=== PATIENT | female | born 1980 | race Caucasian/White ===

== ENCOUNTER 2023-06-11 15:32 | Emergency (ER) | payer OTHER, SELFPAY ==
[2023-06-11 15:50] VITALS: BP 132/86; PULSE 91; RESP 19; TEMP 36.6; O2SAT 99; BMI 32.8
--- NOTE | 2023-06-11 16:35 | ED_ITS ---
Discharge Plan Disposition Patient Disposition: Home, Self-Care Condition: Good Prescriptions Prescriptions: New azithromycin [Zithromax Z-Braydon] 250 mg tablet See Rx Instructions .ROUTE .COMPLEX 5 Days Qty: 6 0RF Rx Instructions: For 250 mg dose pack: take 500 mg today (day 1), then 250 mg for 4 days (days 2-5) methylprednisolone [Medrol (Braydon)] 4 mg tablets,dose pack See Rx Instructions .Route .COMPLEX 6 Days Qty: 21 0RF Rx Instructions: taper pack; guaifenesin [Mucinex] 600 mg tablet extended release 12hr 1,200 mg PO BID PRN (Reason: cough) Qty: 20 0RF Referrals Follow up/Referrals: Provider,Referral, MD [Primary Care Provider] - See instructions Activity Restrictions/Add. Instructions Additional Instructions/Restrictions: * Start antibiotic today. Be sure to complete entire prescription even if feeling better * Monitor temp. Tylenol every 4 hours as needed and / or ibuprofen every 6 hours as needed ( As long as your primary care physician has told you that it ok to take both. For fever/aches/pains ER if no less than 101 despite Tylenol or Motrin * Humidifier/vaporizer or hot steamy shower * Mucinex for your cough and cough suppressant only at night. Be sure to drink lots of water. *Start steroid today. Helps with inflammation therefore, cough and wheezing. Follow directions on the package. Reviewed side effects. Patient reports taking them before. Follow up IMMEDIATELY for new or worsening of symptoms OR no noticeable improvement over the next 48-72 hours. 911 immediately for any life threatening symptoms such as chest pain or difficulty breathing Clinical Impressions Clinical Impression: Bronchitis Sinusitis Qualifiers: Sinusitis location: unspecified location Chronicity: unspecified Qualified Code(s): J32.9 - Chronic sinusitis, unspecified Instructions Patient Instructions: DI for Sinusitis, Sinusitis, Acute Bronchitis Discharge ED Provider: Yarely Mike [facility] General Stated complaint: anatoly, tb test Mode of Arrival: Ambulatory Source of Information: Patient Limitations: No Limitations Time Seen by Provider: 06/11/23 16:35 Description of Symptoms (Recalled from Triage Doc. by RN): PATIENT C/O COUGH AND CHEST CONGESTION X 3 WEEKS HEENT Symptoms (Recalled from RN notes): No Resp Symptoms (Recalled from RN notes): Yes Skin Symptoms (Recalled from RN notes): No MS Symptoms (Recalled from RN notes): No Functional Status (Recalled from RN notes): WNL History of Present Illness Provider Complaint: Patient states that she started a couple weeks ago with sinus congestion and pressure and now feels like it has moved into her chest States that at times she is coughing up some mucous and having a burning feeling at times with cough States that today she was still having symptoms so she came in to get checked Related Data Previous Rx's Medication Instructions Recorded azithromycin 250 mg tablet See Rx Instructions PO .COMPLEX 5 06/11/23 (Zithromax Z-Braydon) days #6 tabs guaifenesin 600 mg tablet, 1,200 mg PO BID PRN cough #20 tabs 06/11/23 extended release 12 hr (Mucinex) methylprednisolone 4 mg tablets in See Rx Instructions .Route 06/11/23 a dose pack (Medrol (Braydon)) .COMPLEX 6 days #21 tabs Allergies Allergy/AdvReac Type Severity Reaction Status Date / Time No Known Allergies Allergy Verified 06/11/23 16:00 Worker's Comp Is this a Worker's Comp case?: No PFSH FOR[facility]LY [facility], [facility] Disclaimer: The information contained in this section may have been updated after the jessica ent was seen, as this information can be updated by other users. Medical History (Updated 06/11/23 @ 16:46 by Yarely Mike APRN) No significant past medical history Social History Smoking Status: Unknown if ever smoked alcohol intake: never current occupational status: employed Travel in the last 8 weeks: None ROS Obtained: Yes All systems reviewed & no additional complaints except as documented and Yes Systems reviewed as appropriate & no additional complaints except as documented Constitutional Constitutional: Reports system reviewed and no additional complaints, except as documented and Reports as per HPI ENT Ears, Nose, Mouth, and Throat: Reports system reviewed and no additional complaints, except as documented, Reports as per HPI, Reports nasal congestion and Reports sinus pressure Cardiovascular Cardiovascular: Reports system reviewed and no additional complaints, except as documented and Reports as per HPI Respiratory Respiratory: Reports system reviewed and no additional complaints, except as documented, Reports as per HPI, Denies shortness of breath, Reports chest congestion and Reports cough Gastrointestinal Gastrointestingal: Reports system reviewed and no additional complaints, except as documented and as per HPI Physical Exam General General appearance: alert and in no apparent distress ENT ENT exam: Present mucous membranes moist Expanded ENT Exam Nose exam: Present sinus tenderness Throat exam: Present other (Pharngeal erythema noted with PND) Respiratory Respiratory exam: Present normal lung sounds bilaterally; Absent respiratory distress or wheezes Cardiovascular Cardiovascular exam: Present regular rate, normal rhythm and normal heart sounds Abdominal Exam Abdominal exam: Present soft and normal bowel sounds; Absent distention or tenderness Neurological Exam Neurological exam: Present alert, oriented X3 and normal gait Medical Decision Making Nikolai Inquiry Pt receiving controlled substance: No Nikolai was queried for this patient: No Vital Signs: 06/11/23 15:50 Temperature 97.9 F Temperature Source Oral Pulse Rate [Left Brachial] 91 H Respiratory Rate 19 Blood Pressure [Left Arm] 132/86 Blood Pressure Mean [Left Arm] 101 Blood Pressure Source [Left Arm] Automatic Cuff Blood Pressure Position [Left Arm] Sitting 02 Sat by Pulse Oximetry 99 Oxygen Delivery Method Room Air
[2023-06-11 16:50] VITALS: BP 132/86; PULSE 91; RESP 19; TEMP 36.6; O2SAT 99
== END 2023-06-11 16:53 | disposition home or self-care (01) ==
PROVIDERS: Emergency Provider Nurse Practitioner
DX: J20.9 Acute bronchitis, unspecified (principal); J01.90 Acute sinusitis, unspecified; R09.89 Other specified symptoms and signs involving the circulatory and respiratory systems; R05.8 Other specified cough
CPT/HCPCS: 99204; 99212; G0463

== ENCOUNTER 2023-08-04 02:23 | Emergency (ER) | payer OTHER, SELFPAY ==
--- NOTE | 2023-08-04 02:26 | HMH.EDGENADL ---
Discharge Plan Disposition Patient Disposition: Home, Self-Care Chief Complaint: Upper Respiratory Infection Prescriptions Prescriptions: No Action azithromycin [Zithromax Z-Braydon] 250 mg tablet See Rx Instructions .ROUTE .COMPLEX 5 Days Qty: 6 0RF Rx Instructions: For 250 mg dose pack: take 500 mg today (day 1), then 250 mg for 4 days (days 2-5) methylprednisolone [Medrol (Braydon)] 4 mg tablets,dose pack See Rx Instructions .Route .COMPLEX 6 Days Qty: 21 0RF Rx Instructions: taper pack; guaifenesin [Mucinex] 600 mg tablet extended release 12hr 1,200 mg PO BID PRN (Reason: cough) Qty: 20 0RF Referrals Follow up/Referrals: Provider,Referral, [Primary Care Provider] - See instructions Activity Restrictions/Add. Instructions Additional Instructions/Restrictions: Please follow-up with your primary care provider. Please return to the emergency department if you develop any new or worsening symptoms or become concerned for your health. Clinical Impressions Clinical Impression: Acute streptococcal pharyngitis Discharge ED Provider: Uri Loya General Adult HPI General Stated complaint: sore throat Time Seen by Provider: 08/04/23 02:26 History of Present Illness HPI narrative: 43-year-old female with reported history of recurrent severe strep throat presents with concern for strep throat. She reports that symptom onset was earlier today. She reports that she has had to be admitted for this in the past. She reports throat pain. Related Data Previous Rx's Medication Instructions Recorded azithromycin 250 mg tablet See Rx Instructions PO .COMPLEX 5 06/11/23 (Zithromax Z-Braydon) days #6 tabs guaifenesin 600 mg tablet, 1,200 mg PO BID PRN cough #20 tabs 06/11/23 extended release 12 hr (Mucinex) methylprednisolone 4 mg tablets in See Rx Instructions .Route 06/11/23 a dose pack (Medrol (Braydon)) .COMPLEX 6 days #21 tabs Allergies Allergy/AdvReac Type Severity Reaction Status Date / Time No Known Allergies Allergy Verified 06/11/23 16:00 [facility] Disclaimer: The information contained in this section may have been updated after the patient was seen, as this information can be updated by other users. Medical History (Updated 08/04/23 @ 02:52 by Uri Loya MD) No significant past medical history Social History (Updated 06/11/23 @ 16:46 by Yarely Mike APRN) Smoking Status: Unknown if ever smoked alcohol intake: never current occupational status: employed Travel in the last 8 weeks: None ROS Obtained: Yes All systems reviewed & no additional complaints except as documented Physical Exam General General appearance: alert and in no apparent distress Head Head exam: atraumatic and normocephalic Eye Eye exam: Present normal appearance, PERRL and EOMI ENT ENT exam: Present normal external ear exam and other (Tonsillar erythema, swelling, exudate, 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) Neck Neck exam: Present normal inspection and full ROM Chest Chest inspection: Present normal inspection and symmetric chest wall rise; Absent tenderness Respiratory Respiratory exam: Present normal lung sounds bilaterally; Absent respiratory distress Cardiovascular Cardiovascular exam: Present regular rate and normal rhythm Abdominal Exam Abdominal exam: Present soft; Absent distention, tenderness or guarding Extremities Exam Extremities exam: Present normal inspection; Absent edema or joint swelling Back Exam Back exam: Present normal inspection; Absent tenderness Neurological Exam Neurological exam: Present alert and oriented X3; Absent motor sensory deficit Psychiatric Psychiatric exam: Present normal affect and normal mood Skin Skin exam: Present warm, dry and normal color Lymphatic Lymphatic Findings: no adenopathy Medical Decision Making Medical Records Medical records reviewed: Yes I reviewed the patient's medical records. Nikolai Inquiry Pt receiving controlled substance: No Nikolai was queried for this patient: No Lab Data Lab results reviewed: Yes I reviewed the patient's lab results. Orders (Tests/Meds): ORDERS Category Date Time Status Strep Scrn Group A (Rapid) Stat Lab 08/04/23 02:31 Ordered Medical Decision Narrative: 43-year-old female with reported history of recurrent strep throat presents with throat pain. History obtained from patient. Differential diagnosis includes but limited to strep pharyngitis, viral pharyngitis, peritonsillar abscess, retropharyngeal abscess. Exam with tonsillar erythema and exudate. Strep swab obtained and positive. Patient reports that she has had more success with the IM injection versus the oral amoxicillin for treatment of strep throat in the past. She was given 1,200,000 units of intramuscular penicillin G and discharged in stable condition. Return precautions given. Procedures Risk/Benefits of Procedure(s) Were Explained: Yes Critical Care Critical Care Time Critical Care Time: No
[2023-08-04 02:36] VITALS: BP 122/94; PULSE 105; RESP 18; TEMP 37.3; O2SAT 98; BMI 29.2
[2023-08-04 02:48] LABS: Strep Scrn Group A (Rapid) Positive (Negative)
[2023-08-04] MEDS: PENICILLIN G BENZATHINE 1,200,000 UNITS/2ML SYRINGE 1200000 UNIT IM (02:54)
[2023-08-04 03:04] VITALS: BP 122/94; PULSE 98; RESP 19; TEMP 37.2; O2SAT 99
== END 2023-08-04 02:57 | disposition home or self-care (01) ==
PROVIDERS: Emergency Provider Emergency Medicine
DX: J02.0 Streptococcal pharyngitis (principal)
CPT/HCPCS: 87430; 96372; 99283; J0561

== ENCOUNTER 2023-08-05 16:05 | Emergency (ER) | payer OTHER, SELFPAY ==
[2023-08-05 16:05] VITALS: BP 122/91; PULSE 88; RESP 15; TEMP 36.8; O2SAT 98; BMI 29.2
[2023-08-05 16:11] VITALS: BP 122/91; PULSE 91; O2SAT 98
--- NOTE | 2023-08-05 16:17 | CT_ITS ---
PROCEDURE INFORMATION: Exam: CT Neck With Contrast Exam date and time: 08/05/2023 5:11 PM Age: 43 years old Clinical indication: Other: P; Additional info: Pharyngitis vs abscess TECHNIQUE: Imaging protocol: Computed tomography of the neck with contrast. Radiation optimization: All CT scans at this facility use at least one of these dose optimization techniques: automated exposure control; mA and/or kV adjustment per patient size (includes targeted exams where dose is matched to clinical indication); or iterative reconstruction. Contrast material: ISOVUE; Contrast volume: 75 ml; Contrast route: IV; COMPARISON: No relevant prior studies available. FINDINGS: Limitations: Limited by artifact arising from metallic dental hardware/dental amalgam. Patient motion. Paranasal sinuses: Mild paranasal sinus disease. Pharynx: There is striated pattern of enhancement involving the bilateral palatine tonsils with tonsillar enlargement. Larynx: Unremarkable. Epiglottis is normal. Prevertebral and retropharyngeal spaces: Unremarkable. Salivary glands: Normal. Glands are normal in size. Thyroid: Normal. No enlarged or calcified nodules. Lymph nodes: There are nonenlarged bilateral cervical lymph nodes. Trachea: Visualized trachea is unremarkable. Lungs: Unremarkable as visualized. Bones/joints: Unremarkable. No acute fracture. Soft tissues: Unremarkable. No significant soft tissue swelling. Other findings: No fluid collection. IMPRESSION: 1. Findings as above compatible with tonsillitis. 2. No drainable fluid collection.
--- NOTE | 2023-08-05 16:21 | ED_ITS ---
Discharge Plan Disposition Patient Disposition: Home, Self-Care Condition: Fair Prescriptions Prescriptions: New amoxicillin-pot clavulanate 875-125 mg tablet 1 tab PO BID Qty: 20 0RF No Action azithromycin [Zithromax Z-Braydon] 250 mg tablet See Rx Instructions .ROUTE .COMPLEX 5 Days Qty: 6 0RF Rx Instructions: For 250 mg dose pack: take 500 mg today (day 1), then 250 mg for 4 days (days 2-5) methylprednisolone [Medrol (Braydon)] 4 mg tablets,dose pack See Rx Instructions .Route .COMPLEX 6 Days Qty: 21 0RF Rx Instructions: taper pack; guaifenesin [Mucinex] 600 mg tablet extended release 12hr 1,200 mg PO BID PRN (Reason: cough) Qty: 20 0RF Referrals Follow up/Referrals: Favio Silva MD [Physician] - See instructions Provider,MD Maxi [Primary Care Provider] - See instructions Clinical Impressions Clinical Impression: Acute bacterial pharyngitis Instructions Patient Instructions: DI for Pharyngitis/Tonsillopharyngitis -- Adult Discharge ED Provider: Courtney Mccullough General Adult HPI General Chief complaint: PAIN Stated complaint: strep + Time Seen by Provider: 08/05/23 16:11 Mode of Arrival: Ambulatory Source of Information: Patient Limitations: No Limitations Description of Symptoms (Recalled from ER Triage Doc. by RN): pt presents to ED with complaints of worsening sore throat. pt was diagnosed with strep in ED on 08/04 and was given penicillian shot. pt reports symptoms worsening since then History of Present Illness HPI narrative: 43-year-old female with previous medical history of prior episodes of painful strep pharyngitis presents with 3 days of sore throat. 3 days ago patient began to have sore throat pain, redness, and tonsillar exudates. She presented to this emergency department approximately 36 hours ago requesting antibiotics for this pharyngitis and was given IM penicillin. She has had no improvement in her pharyngitis and has continued to have severe pain so has returned to the emergency department. She states she has had to be admitted for IV antibiotics for this in the past. She has not taken steroids for this. She has been taking Tylenol and ibuprofen at home. She is tolerating food and fluids by mouth. Related Data Previous Rx's Medication Instructions Recorded azithromycin 250 mg tablet See Rx Instructions PO .COMPLEX 5 06/11/23 (Zithromax Z-Braydon) days #6 tabs guaifenesin 600 mg tablet, 1,200 mg PO BID PRN cough #20 tabs 06/11/23 extended release 12 hr (Mucinex) methylprednisolone 4 mg tablets in See Rx Instructions .Route 06/11/23 a dose pack (Medrol (Braydon)) .COMPLEX 6 days #21 tabs amoxicillin 875 mg-potassium 1 tab PO BID #20 tabs 08/05/23 clavulanate 125 mg tablet Allergies Allergy/AdvReac Type Severity Reaction Status Date / Time No Known Allergies Allergy Verified 06/11/23 16:00 [facility] Disclaimer: The information contained in this section may have been updated after the patient was seen, as this information can be updated by other users. Medical History No significant past medical history Social History Smoking Status: Never smoker alcohol intake: never current occupational status: employed Travel in the last 8 weeks: None ROS Obtained: Yes All systems reviewed & no additional complaints except as documented Physical Exam General General appearance: alert Comment: Tearful but no acute respiratory distress. No stridor. Head Head exam: atraumatic, normocephalic and normal inspection Eye Eye exam: Present normal appearance, PERRL and EOMI ENT ENT exam: Present mucous membranes moist, TM's normal bilaterally and normal external ear exam Expanded ENT Exam Throat exam: Present tonsillar erythema and tonsillar exudate; Absent muffled voice Comment: Tonsillar swelling left greater than right Neck Neck exam: Present normal inspection, full ROM and trachea midline; Absent meningismus or lymphadenopathy Chest Chest inspection: Present normal inspection and symmetric chest wall rise; Absent tenderness Respiratory Respiratory exam: Present normal lung sounds bilaterally; Absent respiratory distress Cardiovascular Cardiovascular exam: Present regular rate and normal rhythm; Absent JVD Abdominal Exam Abdominal exam: Present soft and normal bowel sounds; Absent distention, tenderness or guarding Extremities Exam Extremities exam: Present normal inspection, full ROM and normal capillary refill; Absent calf tenderness Back Exam Back exam: Present normal inspection; Absent tenderness Neurological Exam Neurological exam: Present alert and oriented X3 Psychiatric Psychiatric exam: Present normal affect and normal mood Skin Skin exam: Present warm, dry, intact and normal color Lymphatic Lymphatic Findings: no adenopathy Medical Decision Making Nikolai Inquiry Pt receiving controlled substance: No Nikolai was queried for this patient: No Vital Signs: 08/05/23 16:05 08/05/23 16:11 08/05/23 16:30 Temperature 98.3 F Temperature Source Oral Pulse Rate 91 H 86 Pulse Rate [Left Radial] 88 Respiratory Rate 15 20 Blood Pressure 122/91 H 128/92 H Blood Pressure [Right Arm] 122/91 H Blood Pressure Mean 101 101 Blood Pressure Mean [Right Arm] 101 02 Sat by Pulse Oximetry 98 98 99 Oxygen Delivery Method Room Air Room Air Lab Data Lab Results 08/05/23 16:30: WBC 11.3 H, RBC 4.05 L, Hgb 12.2, Hct 36.1 L, MCV 89.2, MCH 30.1, MCHC 33.7, RDW 13.2, Plt Count 317, MPV 7.2 L, Neut % (Auto) 77.1, Lymph % (Auto) 16.5, [place] % (Auto) 4.3, Eos % (Auto) 1.6, Baso % (Auto) 0.4, Neut # (Auto) 8.7 H, Lymph # (Auto) 1.9, [place] # (Auto) 0.5, Eos # (Auto) 0.2, Baso # (Auto) 0.1, Sodium 138, Potassium 3.3 L, Chloride 106, Carbon Dioxide 28, Anion Gap 7.3, BUN 8, Creatinine 0.70, Estimated Creat Clear 114, Estimated GFR 92, Est GFR ( Amer) 112, Glucose 96, Calcium 9.1, Serum HCG, Qual Negative 08/05/23 16:30 08/05/23 16:30 Orders (Tests/Meds): ED MEDICATIONS Generic Name Dose Route Start Last Admin Trade Name Freq PRN Reason Stop Dose Admin Sodium Chloride 10 ml 08/05/23 16:35 Sodium Chloride 0.9% 10ml Flush Syringe IV 09/04/23 16:34 NEEDED PRN Maintain IV Site Discontinued Medications Generic Name Dose Route Start Last Admin Trade Name Freq PRN Reason Stop Dose Admin Dexamethasone 10 mg 08/05/23 16:17 08/05/23 16:33 Dexamethasone 1mg/1ml Intensol 10ml Udc (Er) PO 08/05/23 16:18 10 mg ONCE ONE Administration Ampicillin Sodium/Sulbactam 100 mls @ 200 mls/hr 08/05/23 16:28 08/05/23 16:52 Sodium 3 gm/ Sodium Chloride IV 08/05/23 16:29 200 mls/hr ONCE ONE Administration Iopamidol 75 ml 08/05/23 17:13 08/05/23 17:14 Iopamidol-370 (76%);100ml Bottle IV 08/05/23 17:14 75 ml ONCE ONE Administration Ketorolac Tromethamine 15 mg 08/05/23 16:17 08/05/23 16:34 Ketorolac 30mg/Ml Vial IV 08/05/23 16:18 15 mg ONCE ONE Administration Sodium Chloride 10 ml 08/05/23 17:13 08/05/23 17:14 Sodium Chloride 0.9% 10ml Syr (Rad Only) IV 08/05/23 17:14 10 ml ONCE ONE Administration Tetracycl/Hydrocort/Nystatin/Diphen 15 ml 08/05/23 16:20 08/05/23 16:34 Magic Mouthwash 300ml Bottle PO 08/05/23 16:21 15 ml ONCE ONE Administration ORDERS Category Date Time Status CT soft tissue neck w con Stat Cat Scan 08/05/23 16:17 Completed BMP [Basic Metabolic Panel] Stat Lab 08/05/23 16:30 Completed CBC [Complete Blood Count Auto Diff] Stat Lab 08/05/23 16:30 Completed Serum [HCG Qualitative, Serum] Stat Lab 08/05/23 16:30 Completed Medical Decision Narrative: Consider multiple causes of patient's pharyngeal erythema and tonsillar exudates and swelling that have been refractory to IM penicillin, including that patient may have a peritonsillar abscess, retropharyngeal abscess, resistant bacterial pharyngitis, among others. For this reason administered Toradol, dexamethasone, Unasyn, and obtained labs and CT soft tissue neck given she may have an abscess causing her refractory infection. CT scan I independently reviewed and interpreted showed no abscess in the peritonsillar or retropharyngeal region. No severe complications aside from her bacterial pharyngitis. Laboratory evaluation is consistent with bacterial pharyngitis with no significant complications. I explained this to patient and she did have significant improvement in her pain with medications given. Discussed outpatient Augmentin and close follow-up with ENT and patient is comfortable with this plan at this time. Appropriate for discharge with return precautions. Critical Care Critical Care Time Critical Care Time: No
[2023-08-05 16:30] VITALS: BP 128/92; PULSE 86; RESP 20; O2SAT 99
[2023-08-05] MEDS: DEXAMETHASONE 1MG/1ML INTENSOL 10ML UDC (ER) 10 MG PO (16:33)
[2023-08-05] MEDS: KETOROLAC 30MG/ML VIAL 15 MG IV (16:34)
[2023-08-05] MEDS: MAGIC MOUTHWASH 300ML BOTTLE 15 ML PO (16:34)
[2023-08-05 16:48] LABS: Basophils # 0.1 K/mm3 (0-0.2); Basophils % 0.4 % (0.1-2.0); Chloride 106 mmol/L (98-107); Eosinophils # 0.2 K/mm3 (0.0-0.4); Eosinophils % 1.6 % (0.1-12.0); Hematocrit 36.1 % (37.0-47.0); Hemoglobin 12.2 g/dL (12.2-16.2); Lymphocytes # 1.9 K/mm3 (0.7-4.5); Lymphocytes % 16.5 % (10-50); Mean Corpuscular HGB Conc 33.7 g/dL (31.8-35.4); Mean Corpuscular Hemoglobin 30.1 pg (27.0-31.2); Mean Corpuscular Volume 89.2 fl (81-99); Mean Platelet Volume 7.2 fl (7.4-10.4); Monocytes # 0.5 K/mm3 (0.1-1.0); Monocytes % 4.3 % (1.7-9.3); Neutrophils # 8.7 K/mm3 (1.8-7.8); Neutrophils % 77.1 % (37.0-80.0); Platelet Count 317 K/mm3 (142-424); Potassium 3.3 mmoL/L (3.5-5.1); Red Blood Count 4.05 M/mm3 (4.20-5.40); Red Cell Distribution Width 13.2 % (11.5-17.5); Sodium 138 mmol/L (136-145); White Blood Count 11.3 K/mm3 (4.8-10.8)
[2023-08-05 16:51] LABS: Anion Gap 7.3 mEq/L (5-15); Blood Urea Nitrogen 8 mg/dl (7-17); Carbon Dioxide 28 mmol/L (22.0-30.0); Creatinine Clearance Estimated 114 mL/min (50-200); Estimated Glomerular Filt Rate 92 ml/min (>60); GFR (African American) 112 ML/MIN (>60); Glucose 96 mg/dl (74-100)
[2023-08-05 16:52] LABS: Calcium 9.1 mg/dl (8.4-10.2)
[2023-08-05] MEDS: AMPICILLIN SODIUM/SULBACTAM 3 GM in 0.9 % SODIUM CHLORIDE 100 ML IV (16:52)
[2023-08-05 17:00] VITALS: BP 110/73; PULSE 86; RESP 20; O2SAT 97
[2023-08-05 17:02] LABS: HCG Qualitative, Serum Negative (Negative)
[2023-08-05] MEDS: IOPAMIDOL-370 (76%);100ML BOTTLE 75 ML IV (17:14)
[2023-08-05] MEDS: SODIUM CHLORIDE 0.9% 10ML SYR (RAD ONLY) 10 ML IV (17:14)
--- NOTE | 2023-08-05 18:06 | PC.NURSE ---
Rounded on Pt to see if they had any needs. Advised them we had an Emergency at the time and made sure they didnt need anything.
[2023-08-05 18:38] VITALS: BP 120/94; PULSE 86; RESP 15; TEMP 36.7
== END 2023-08-05 18:39 | disposition home or self-care (01) ==
PROVIDERS: Emergency Provider Emergency Medicine
DX: J02.0 Streptococcal pharyngitis (principal)
CPT/HCPCS: 70491; 80048; 84703; 85025; 96374; 96375; 99285; Q9967

== ENCOUNTER 2023-08-23 09:46 | Emergency (ER) | payer OTHER, SELFPAY ==
[2023-08-23 09:55] VITALS: BP 114/72; PULSE 84; RESP 18; TEMP 36.8; O2SAT 96; BMI 43.6
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
[2023-08-23] MEDS: TET/DIPHTH/PERT-ADULT 0.5ML SYRINGE 0.5 ML IM (10:45)
[2023-08-23] MEDS: TETRACAINE 0.5% OPTH SOL 15ML OP (10:58)
[2023-08-23] MEDS: ERYTHROMYCIN BASE 3.5 GM OINT...G. 1 GM OP (10:58)
[2023-08-23 11:00] VITALS: BP 114/72; PULSE 84; RESP 18; TEMP 36.8; O2SAT 96
== END 2023-08-23 11:00 | disposition home or self-care (01) ==
PROVIDERS: Emergency Provider Nurse Practitioner Family
DX: S05.01XA Injury of conjunctiva and corneal abrasion without foreign body, right eye, initial encounter (principal); Z23 Encounter for immunization; W45.8XXA Other foreign body or object entering through skin, initial encounter
CPT/HCPCS: 90471; 90715; 99212; 99214; G0463

== ENCOUNTER 2023-10-28 15:31 | Outpatient (CLI) | payer OTHER, SELFPAY ==
[2023-10-28 15:37] LABS: MANUAL DIFFERENTIAL MANUAL DIFFERENTIAL (MANUAL DIFF)
--- NOTE | 2023-10-28 15:44 | ECG_ITS ---
APPROVED REPORT Exam: Resting ECG HR:93 bpm ECG Measurements Heart Rate 93 AXES UT 162 P 50 QRSd 80 QRS 14 QT 355 T 50 QTc 405 Conclusion SINUS RHYTHM ABNORMAL ECG UNCONFIRMED REPORT Electronically signed by : Augustine Solis MD 10/30/2023 12:25:09
[2023-10-28 15:50] LABS: Basophils # 0.1 K/mm3 (0-0.2); Basophils % 0.9 % (0.1-2.0); Eosinophils # 0.3 K/mm3 (0.0-0.4); Eosinophils % 2.9 % (0.1-12.0); Hematocrit 39.1 % (37.0-47.0); Hemoglobin 12.9 g/dL (12.2-16.2); Lymphocytes # 2.2 K/mm3 (0.7-4.5); Lymphocytes % 25.2 % (10-50); Mean Corpuscular HGB Conc 32.9 g/dL (31.8-35.4); Mean Corpuscular Hemoglobin 29.3 pg (27.0-31.2); Mean Corpuscular Volume 88.9 fl (81-99); Mean Platelet Volume 7.4 fl (7.4-10.4); Monocytes # 0.4 K/mm3 (0.1-1.0); Monocytes % 4.7 % (1.7-9.3); Neutrophils # 5.8 K/mm3 (1.8-7.8); Neutrophils % 66.4 % (37.0-80.0); Platelet Count 344 K/mm3 (142-424); Red Cell Distribution Width 13.5 % (11.5-17.5); White Blood Count 8.8 K/mm3 (4.8-10.8)
[2023-10-28 16:00] LABS: Urine Pregnancy, HCG Qual. Negative (Negative)
[2023-10-28 16:26] LABS: Eosinophils % 1 % (0-3); Lymphocytes % 23 % (10-50); Monocytes % 4 % (2-9); Neutrophils % 72 % (42-76); Platelet Estimate Normal; RBC Morphology Normal; Total Cells Counted 100
[2023-10-28 16:27] LABS: Alanine Aminotransferase 24 U/L (12-78); Albumin Level 4.5 g/dl (3.5-5.0); Albumin/Globulin Ratio 1.4 (1.1-1.8); Alkaline Phosphatase 88 U/L (38-126); Anion Gap 15.6 mEq/L (5-15); Aspartate Amino Transferase 26 U/L (14-36); Bilirubin,Total 0.4 mg/dl (0.2-1.3); Blood Urea Nitrogen 8 mg/dl (7-17); Calcium 9.5 mg/dl (8.4-10.2); Carbon Dioxide 27 mmol/L (22.0-30.0); Chloride 102 mmol/L (98-107); Estimated Glomerular Filt Rate 92 ml/min (>60); GFR (African American) 112 ML/MIN (>60); Globulin 3.2 g/dL (1.3-3.2); Glucose 81 mg/dl (74-100); Potassium 3.6 mmoL/L (3.5-5.1); Sodium 141 mmol/L (136-145); Total Protein,Serum 7.7 g/dl (6.3-8.2)
== END 2023-10-28 23:59 | disposition home or self-care (01) ==
LOC: LAB 15:32
PROVIDERS: Visit Provider Nurse Practitioner
DX: Z01.818 Encounter for other preprocedural examination (principal); J02.0 Streptococcal pharyngitis
CPT/HCPCS: 36415; 80053; 81025; 85007; 85014; 85018; 85048; 85049; 93005

== ENCOUNTER 2023-11-04 08:43 | Day surgery (SDC) | payer OTHER, SELFPAY ==
[2023-11-02 12:44] VITALS: BMI 31.2
[2023-11-04] VITALS (12 sets, daily range): BP systolic 114–132; BP diastolic 66–87; PULSE 70–106; RESP 14–24; TEMP 35.9–36.4; O2SAT 96–100
[2023-11-04] MEDS: LACTATED RINGERS 1000ML 1,000 ML 25 ML IV (09:49)
[2023-11-04] MEDS: BUPIVACAINE 0.5% W/EPI 1:200,000 30ML VIAL 30 ML IJ (11:22)
--- NOTE | 2023-11-04 11:42 | EXP.OP.NOTE ---
Date of procedure: 11/04/23 Pre-op Diagnosis:: Chronic tonsillitis Post-op Diagnosis:: Chronic tonsillitis Procedure performed:: Tonsillectomy Surgeon:: Chriss Land MD MILIEU TECHNICIAN:: Jelena Ferris Anesthesia: GETA Estimated blood loss (mL): 20 Operative findings:: 3+ enlarged inflamed tonsils bilaterally Operative note:: The patient was brought to the operating room and after adequate general anesthesia the mouth was draped in the usual sterile fashion and a McIvor mouthgag placed. Tonsillectomy was then performed in the plane defined by the tonsillar capsule or and superior constrictor muscle and this was done with electrocautery to simultaneously dissected and cauterized. This was done bilaterally. The tonsillar fossa's were then infiltrated with half percent Marcaine with epinephrine and the procedure concluded. All counts correct and blood loss was 20 mL and patient was sent to recovery in stable condition Condition: stable Disposition: PACU Complications:: No complication
--- NOTE | 2023-11-04 11:58 | P.PNANES_ITS ---
[facility] Anesthesia Record Part I Anesthesia Record I Intake, IV Amount: 600 Hydration: Adequate Estimated blood loss (mL): 10 Urine output (mL): 0 Blood Products used (#): none Blood Pressure: 124/76 SaO2: 98 Pulse Rate: 106 Airway Patency: Patent Respiratory Rate: 18 Temperature: 96.6 F Patient is:: Awake (Talking) and Stable Stable to PACU at:: 11:58
[2023-11-04] MEDS: MORPHINE 2MG/ML SYRINGE 2 MG IV ×2 (12:06→12:23)
[2023-11-04] MEDS: ONDANSETRON 4MG/2ML VIAL 4 MG IV (12:06)
--- NOTE | 2023-11-04 12:15 | EXP.ANES.CKL ---
[facility] Disclaimer: The information contained in this section may have been updated after the patient was seen, as this information can be updated by other users. Medical History History of enlarged tonsils Surgical History Status post percutaneous patent foramen ovale closure Family History Father Hypertension Diabetes Social History Smoking Status: Never smoker alcohol intake: never substance use type: denies use current occupational status: employed Travel in the last 8 weeks: None [facility] Anesthesia Checklist Patient Identification Patient Identification: Arm Band, Family and Verbal (Name & ) Structural Data Admitted From: Home Planned Operative Procedure/s: Tonsillectomy Consent for Planned Operative Procedure(s) Verified: Yes Verified Documents: Surgical Consent and History and Physical NPO Status Verified Time NPO: 22:30 Chart Verification Results Verified: CBC, BMP, ECG and HCG Additional verifications Patient : No Anesthesia Reactions: No Hx Blood Transfusions: No Blood Transfusion Reaction: No Cardiovascular Assessment Heart Sounds: S1 & S2 Pulse Rhythm: Irregular Peripheral Edema: No Airway Assessment Mallampati Score:: Class II C-Spine Mobility Assessed: Yes (FROM) TMJ Mobility Assessed: Yes Dentition: Good Dentition (Nothing loose per pt.) Neurological Assessment Level of Consciousness: Awake, Alert, Appropriate and Follows Commands Hx Seizures: No Numbness or tingling in extremities: No Anesthesia Plan Anesthesia Risk discussed: Yes Anesthesia Plan: Verified ASA Class: II Anesthesia Type: General
--- NOTE | 2023-11-04 12:30 | EXP.ANES.II ---
[facility] Anesthesia Record Part II Anesthesia Record Part II Discharge Time: 12:23 Destination: Surgical Day Care (OP Surgery) PACU nurse assessment reviewed?: Yes Patient Condition:: Good Anesthesia Complications:: None Swallowing reflex intact?: Yes Airway Patency: Patent Cyanosis?: No Blood Pressure: 125/72 SaO2: 96 Respiratory Rate: 22 Pulse Rate: 89 Temperature: 97.0 F Mental Status: Alert & Oriented Pain level:: 5 Nausea and/or vomitting:: None Intake, IV Amount: 600 Hydration: Adequate
== END 2023-11-04 13:10 | disposition home or self-care (01) ==
PROVIDERS: Visit Provider Otolaryngology
PROC: (CPT 42826; principal; 2023-11-04 10:15)
DX: J35.01 Chronic tonsillitis (principal)
CPT/HCPCS: 42826; J3490; J2405

== ENCOUNTER 2023-11-25 10:39 | Outpatient (CLI) | payer OTHER, SELFPAY | END 2023-11-25 23:59 | disposition home or self-care (01) | LOC: LAB.DROPOF 11-26 10:40 | PROVIDERS: PCP Nurse Practitioner Family; Visit Provider Nurse Practitioner Family | DX: N39.0 Urinary tract infection, site not specified (principal); R30.0 Dysuria; B96.1 Klebsiella pneumoniae [K. pneumoniae] as the cause of diseases classified elsewhere | CPT/HCPCS: 87086; 87088; 87186 ==

== ENCOUNTER 2023-12-04 08:23 | Outpatient (CLI) | payer OTHER, SELFPAY ==
--- NOTE | 2023-12-04 08:23 | MM_ITS ---
PROCEDURE INFORMATION: Exam: MG Bilateral Screening 3D Mammography Exam date and time: 12/04/2023 8:07 AM Age: 43 years old Clinical indication: Screening. Her paternal grandmother had breast cancer. TECHNIQUE: Imaging protocol: Bilateral Screening tomosynthesis and 2D mammography including computer-aided detection (CAD) when performed. COMPARISON: No relevant prior studies available. If prior mammograms are provided, I am happy to add an addendum. FINDINGS: MAMMOGRAPHY: Breast composition: There are scattered areas of fibroglandular density. Mass: None. Architectural distortion: None. Calcifications: No suspicious calcifications. Asymmetric density: None. Skin thickening: None. Axillary adenopathy: None. IMPRESSION: No mammographic evidence of malignancy. Annual screening is recommended unless otherwise clinically indicated. ASSESSMENT: BI-RADS Category 1: Negative
[2023-12-04 17:22] LABS: Basophils # 0.1 K/mm3 (0-0.2); Eosinophils # 0.3 K/mm3 (0.0-0.4); Eosinophils % 5.5 % (0.1-12.0); Hematocrit 37.7 % (37.0-47.0); Hemoglobin 12.4 g/dL (12.2-16.2); Lymphocytes % 36.5 % (10-50); Mean Corpuscular HGB Conc 32.9 g/dL (31.8-35.4); Mean Corpuscular Hemoglobin 29.7 pg (27.0-31.2); Mean Corpuscular Volume 90.3 fl (81-99); Mean Platelet Volume 8.4 fl (7.4-10.4); Monocytes # 0.3 K/mm3 (0.1-1.0); Monocytes % 4.7 % (1.7-9.3); Neutrophils # 2.9 K/mm3 (1.8-7.8); Neutrophils % 52.3 % (37.0-80.0); Platelet Count 396 K/mm3 (142-424); Red Blood Count 4.17 M/mm3 (4.20-5.40); Red Cell Distribution Width 13.8 % (11.5-17.5); White Blood Count 5.4 K/mm3 (4.8-10.8)
[2023-12-04 17:45] LABS: Chloride 103 mmol/L (98-107); Potassium 4.1 mmoL/L (3.5-5.1); Sodium 139 mmol/L (136-145)
[2023-12-04 17:48] LABS: Alanine Aminotransferase 22 U/L (12-78); Albumin Level 4.7 g/dl (3.5-5.0); Albumin/Globulin Ratio 1.5 (1.1-1.8); Alkaline Phosphatase 107 U/L (38-126); Anion Gap 15.1 mEq/L (5-15); Aspartate Amino Transferase 24 U/L (14-36); Bilirubin,Total 0.3 mg/dl (0.2-1.3); Blood Urea Nitrogen 11 mg/dl (7-17); Carbon Dioxide 25 mmol/L (22.0-30.0); Cholesterol 234 mg/dl (140-200); Estimated Glomerular Filt Rate 92 ml/min (>60); GFR (African American) 112 ML/MIN (>60); Globulin 3.2 g/dL (1.3-3.2); Total Protein,Serum 7.9 g/dl (6.3-8.2); Triglycerides 106 mg/dl (30-150); VLDL Cholesterol 21 mg/dL (0-40)
[2023-12-04 17:49] LABS: Calcium 9.4 mg/dl (8.4-10.2); Chol/HDL Ratio 5.9 (1-3.5); Glucose 76 mg/dl (74-100); HDL Cholesterol 40 mg/dl (40-60)
[2023-12-04 18:01] LABS: Direct LDL Cholesterol 160.68 mg/dL (100-129)
[2023-12-04 18:06] LABS: 25-OH Vitamin D, Total 31.8 ng/mL (30-100)
[2023-12-04 18:19] LABS: Thyroid Stimulating Hormone 1.53 uIU/mL (0.465-4.68)
[2023-12-04 18:24] LABS: Ferritin 11.2 ng/ml (6.24-137)
[2023-12-04 18:59] LABS: Vitamin B12 339 pg/mL (239-931)
[2023-12-06 08:19] LABS: Triiodothyronine (T3) Free 2.9 pg/mL (2.0-4.4)
== END 2023-12-04 23:59 | disposition home or self-care (01) ==
LOC: RAD 08:23
PROVIDERS: PCP Nurse Practitioner Family; Visit Provider Nurse Practitioner Family
DX: Z12.31 Encounter for screening mammogram for malignant neoplasm of breast (principal); R63.5 Abnormal weight gain; Z68.32 Body mass index [BMI] 32.0-32.9, adult
CPT/HCPCS: 77063; 77067; 80050; 80053; 80061; 82306; 82607; 82728; 84443; 84481; 85025

== ENCOUNTER 2023-12-10 09:05 | Outpatient (CLI) | payer OTHER, SELFPAY ==
[2023-12-10 10:33] LABS: Hemoglobin A1C 5.2 % (4.0-6.0)
[2023-12-11 08:21] LABS: Estradiol 63.8 pg/mL (.); FSH 4.9 mIU/mL (.); LH 4.9 mIU/mL (.); Progesterone 0.2 ng/mL (.)
[2023-12-12 21:11] LABS: Magnesium,RBC 5.8 mg/dL (3.7-7.0)
== END 2023-12-10 23:59 | disposition home or self-care (01) ==
LOC: LAB 09:06
PROVIDERS: PCP Nurse Practitioner Family; Visit Provider Nurse Practitioner Family
DX: R63.5 Abnormal weight gain (principal); R73.09 Other abnormal glucose; N92.6 Irregular menstruation, unspecified; Z68.32 Body mass index [BMI] 32.0-32.9, adult; Z00.00 Encounter for general adult medical examination without abnormal findings
CPT/HCPCS: 36415; 82670; 83001; 83002; 83036; 83735; 84144

== ENCOUNTER 2024-12-12 10:48 | Outpatient (CLI) | payer OTHER, SELFPAY ==
--- OUTSIDE RECORDS SUMMARY | 2010-09-13 12:49 | XMS_ITS | Continuity of Care Document ---
Author Organization [facility] Address [address] [place] [address] Phone Care Team Providers Care Memorial Marker Designer Name Role Phone Maribell ARCEO, RAS, Sayra Unavailable Unavailab le Medications Medication Instructions Dosage Effective Dates (start - stop) Status Comments Plavix 75 mg Tab take 1 tablet (75MG) by ORAL route every day 75 MG - Active aspirin 325 mg Tab take 1 tablet (325MG ) by ORAL route every day 325 MG - Active Procedures Procedure Date OFFICE/OUTPATIENT VISIT, EST OFFICE CONSULTATION Advance Directives Directive Yes / No Effective Date File Name No Information Encounters Encounter Description Practice Location Reason(s) For Visit Diagnoses Date Provider Providers Copied on Encounter [facility], [address], [place], [place], [id number], [place] tel:[phone] [facility] No Information 1 Maribell ARCEO, RAS [place]. [address], [place], [address]. tel:[phone] OFFICE/OUTPAT IENT VISIT, EST [facility], [address], [place], [place], [id number], [place] tel:[phone] [facility] Atrial Septal DefectShortne ss of Breath 0 Rishi ARCEO, RAS, [facility]. [address], [place], [address]. tel: [phone] OFFICE CONSULTATION [facility], [address], [place], [place], [address], tel:[phone] [facility] Patent Foramen OvaleTransien t Ischemic Attack 1-201 0 Rishi ARCEO, [facility], [facility]. [address], [place], [address]. tel: [phone] Family History Family Member Type Diagnosis Age At Onset No Information Payers Payer name Insurance type Covered alliance party ID Authoriza tion(s) No Information Social History Type Description Quantity Date Captured Comments Sex Female Smoking Status No Information Chief Complaint And Reason For Visit No Information Reason For Referral Reason For Referral No Information History Of Present Illness Encounter Date Complaint History Of Prese nt Illness No Information Functional Status Date Functional Assessmen t No Information Instructions Date Instruction Additional Infor mation No Information Assessments Type Assessment Date No Information Patient Care Teams Name Effective Dates (start - stop) Status Members No Information
--- OUTSIDE RECORDS SUMMARY | 2020-05-16 10:45 | XMS_ITS | Continuity of Care Document ---
Author Organization [facility] Address [address] [facility] [address] [place] [address] Phone Care Team Providers Care Underwriting Director Name Role Phone Josh Allen, Maria Del [...] Copied on Encounter Office/outpa tient visit,est, mod [facility], [address] [place], [place], [address], [place] tel:[phone] [facility] Ett,EVR and Echo reviiew (chief complaint) Shortness of breathPalpitation sAtrial septal defect 0 Mewar Andrew. [address], [place], [place], [address], [place]. tel:[phone] Referring Provider: Cristy Shepherd, [facility] [address], [place], [address]. tel:[phone] [facility], [address] [place], [place], [address], [place] tel:[phone] [facility] No Information 0 Romano Troy. [address], [place], [place], [address], [place]. tel:[phone] Referring Provider: Cristy Shepherd, [address] [facility] [address], [place], [address]. tel:[phone] [facility], [address] [place], [place], [address], [place] tel:[phone] [facility] No Information 0 Mewar Andrew. [address], [place], [place], [address], [place]. tel:[phone] Referring Provider: Cristy Shepherd, [address] [facility] [address], [place], [address]. tel:[phone] [facility], [address] [place], [place], [address], [place] tel:[phone] [facility] PalpitationsShort ness of breath Feb- 0 cristal Portillo. [address], [place], [place], [address], [place]. tel:[phone] Referring Provider: Cristy Shepherd, [address] [facility] [address], [place], [address]. tel:[phone] Office consultation , [facility], [address] [place], [place], [address], tel:[phone] [facility] PFO Closure (chief complaint) Palpitatio ns (chief complaint) Dyspnea (chief complaint) Shortness of breathFamily history of ischemic cardiac diseasePalpitatio nsAtrial septal defect Feb- 0 Memagali Morales. [address] [facility] [address], [place], [place], [address], [place]. tel:[phone] Referring Provider: Cristy Shepherd, [address] [facility] [address], [place], [address]. tel:[phone] Family History Family Member Type Diagnosis Age At Onset Problem (finding) Family history of HEART ATTACK Payers Payer name Insurance type Covered alliance party ID Authoriza tion(s) [facility] Claims [id number] Social History Type Description Quantity Date Captured [...] : EF 60%, trace MR TR and MS, IVC 1.3cm w/collapse. [facility] EVR Showed 20 days. Baseline rhythm SR, [...] : EF 60%, trace MR TR and MS, IVC 1.3cm w/collapse. [facility] EVR Showed 20 days. Baseline rhythm SR, [...] Patient comes as a new referral from [facility]. She has a history of PFO to wear done at [place] about 10 years ago. She had a [...] any lab work which was performed at [facility]. Instructions Date Instruction Additional Infor cori Verbal Education Medication Education Verbal Education Medication Education Assessments Type Assessment Date No Information
[2024-12-12 13:51] LABS: Microscopic, Urine URINE MICROSCOPIC (MICROSCOPIC)
[2024-12-12 14:00] LABS: Basophils % 0.8 % (0.1-2.0); Eosinophils # 0.2 Kmm3 (0.0-0.4); Eosinophils % 3.4 % (0.1-12.0); Hematocrit 37.7 % (37.0-47.0); Hemoglobin 12.3 g/dL (12.2-16.2); Immature Granulocytes # 0.02 10^3uL; Immature Granulocytes % 0.4 %; Lymphocytes # 1.8 K/mm3 (0.7-4.5); Lymphocytes % 33.1 % (10-50); Mean Corpuscular HGB Conc 32.6 g/dL (31.8-35.4); Mean Corpuscular Hemoglobin 27.8 pg (27.0-31.2); Mean Corpuscular Volume 85.1 fl (81-99); Mean Platelet Volume 8.9 fl (7.4-10.4); Monocytes # 0.3 K/mm3 (0.1-1.0); Monocytes % 5.1 % (1.7-9.3); Neutrophils % 57.2 % (37.0-80.0); Nucleated Red Blood Cells # 0 10^3/uL; Nucleated Red Blood Cells % 0 %; Platelet Count 340 K/mm3 (142-424); Red Blood Count 4.43 M/mm3 (4.20-5.40); Red Cell Distribution Width 12.9 % (11.5-17.5); Red Cell Distribution Width-SD 39.7 fL; White Blood Count 5.3 K/mm3 (4.8-10.8)
[2024-12-12 14:03] LABS: Appearance,Urine CLEAR (Clear); Bilirubin,Urine Negative (Negative); Blood, Urine Negative (Negative); Color,Urine YELLOW (Yellow); Glucose,Urine (UA) Negative (Negative); Ketones,Urine TRACE (Negative); Leukocyte Esterase,Urine Negative (Negative); Nitrate,Urine Negative (Negative); Protein,Urine Negative (Negative)
[2024-12-12 15:16] LABS: Bacteria,Urine Trace /lpf; RBC,Urine Occasional #/hpf (0-3); WBC,Urine Occasional #/hpf (0-3)
[2024-12-12 15:44] LABS: Albumin Level 4.5 g/dl (3.5-5.0); Chloride 102 mmol/L (98-107)
[2024-12-12 15:45] LABS: Sodium 137 mmol/L (136-145)
[2024-12-12 15:47] LABS: Alanine Aminotransferase 21 U/L (12-78); Albumin/Globulin Ratio 1.7 (1.1-1.8); Alkaline Phosphatase 106 U/L (38-126); Aspartate Amino Transferase 21 U/L (14-36); Bilirubin,Total 0.4 mg/dl (0.2-1.3); Blood Urea Nitrogen 9 mg/dl (7-17); Carbon Dioxide 23 mmol/L (22.0-30.0); Cholesterol 216 mg/dl (140-200); Estimated Glomerular Filt Rate 110 ml/min (>60); GFR (African American) 133 ML/MIN (>60); Globulin 2.7 g/dL (1.3-3.2); Total Protein,Serum 7.2 g/dl (6.3-8.2); Triglycerides 119 mg/dl (30-150); VLDL Cholesterol 24 mg/dL (0-40)
[2024-12-12 15:48] LABS: Calcium 8.8 mg/dl (8.4-10.2); Chol/HDL Ratio 6.4 (1-3.5); Glucose 96 mg/dl (74-100); HDL Cholesterol 34 mg/dl (40-60); Iron 51 ug/dL (37-170)
[2024-12-12 15:58] LABS: Total Iron Binding Capacity 382 ug/dL (265-497)
[2024-12-12 15:59] LABS: Direct LDL Cholesterol 141.18 mg/dL (100-129)
[2024-12-12 16:04] LABS: 25-OH Vitamin D, Total 31.4 ng/mL (30-100)
[2024-12-12 16:05] LABS: Free T4 (Free Thyroxine) 0.78 ng/dl (0.78-2.19)
[2024-12-12 16:19] LABS: Thyroid Stimulating Hormone 0.03 uIU/mL (0.465-4.68)
[2024-12-12 16:23] LABS: Ferritin 14.5 ng/ml (6.24-137)
[2024-12-12 16:30] LABS: HIV Combo NEGATIVE (Negative)
[2024-12-12 16:37] LABS: Hepatitis C Ab Qual. W/ RFX NEGATIVE (Negative)
[2024-12-12 18:28] LABS: Vitamin B12 309 pg/mL (239-931)
== END 2024-12-12 23:59 | disposition home or self-care (01) ==
LOC: LAB.DROPOF 12-15 10:49
PROVIDERS: PCP Nurse Practitioner Family; Visit Provider Nurse Practitioner Family
DX: Z00.00 Encounter for general adult medical examination without abnormal findings (principal); G47.33 Obstructive sleep apnea (adult) (pediatric); I10 Essential (primary) hypertension; E11.9 Type 2 diabetes mellitus without complications; Z68.35 Body mass index [BMI] 35.0-35.9, adult; R41.3 Other amnesia; R63.5 Abnormal weight gain; R53.83 Other fatigue; Z12.39 Encounter for other screening for malignant neoplasm of breast; Z11.59 Encounter for screening for other viral diseases; Z11.4 Encounter for screening for human immunodeficiency virus [HIV]
CPT/HCPCS: 80053; 80061; 80074; 81001; 82306; 82607; 82728; 83036; 83540; 83550; 84439; 84443; 85025; 87086; 87389

== ENCOUNTER 2024-12-27 12:50 | Outpatient (CLI) | payer OTHER, SELFPAY ==
--- OUTSIDE RECORDS SUMMARY | 2010-09-13 12:49 | XMS_ITS | Continuity of Care Document ---
Author Organization [facility] Address [address] [place] [address] Phone Care Team Providers Care Psych Social Worker Name Role Phone Maribell ARCEO, RAS, Sayra [...] [facility], [address], [place], [place], [address], [place] tel:[phone] [facility] No Information 1 Maribell ARCEO, RAS [place]. [address], [place], [address]. tel:[phone] OFFICE/OUTPAT IENT VISIT, EST [facility], [address], [place], [place], [address], [place] tel:[phone] [facility] Atrial Septal DefectShortne ss of Breath 0 Rishi ARCEO, RAS, [place]. [address], [place], [address]. tel: [phone] OFFICE CONSULTATION [facility], [address], [place], [place], [address], tel:[phone] [facility] Patent Foramen OvaleTransien t Ischemic Attack 1-201 0 Rishi ARCEO, [facility], [place]. [address], [place], [address]. tel: [phone] Family History Family Member Type Diagnosis Age At Onset No Information Payers Payer name Insurance type Covered green party ID Authoriza tion(s) No Information Social [...]
--- OUTSIDE RECORDS SUMMARY | 2020-05-16 10:45 | XMS_ITS | Continuity of Care Document ---
Author Organization [facility] Address [address] [place] [address] Phone Care Team Providers Care Lost Charge Card Clerk Name Role Phone Josh Allen, Maria [...] Copied on Encounter Office/outpa tient visit,est, mod [facility], [address] [place], [place], [address], [place] tel:[phone] [facility] Ett,EVR and Echo reviiew (chief complaint) Shortness of breathPalpitation sAtrial septal defect 0 Mewar Andrew. [address], [place], [place], [address], [place]. tel:[phone] Referring Provider: Cristy Shepherd, [facility] [address], [place], [address]. tel:[phone] [facility], [address] [place], [place], [address], [place] tel:[phone] [facility] No Information 0 Romano Troy. [address], [place], [place], [address], [place]. tel:[phone] Referring Provider: Cristy Shepherd, [address] [facility] [address], [place], [address]. tel:[phone] [facility], [address] [place], [place], [address], [place] tel:[phone] [facility] No Information 0 Mewar Andrew. [address], [place], [place], [address], [place]. tel:[phone] Referring Provider: Cristy Shepherd, [address] [facility] [address], [place], [address]. tel:[phone] [facility], [address] [place], [place], [address], [place] tel:[phone] [facility] PalpitationsShort ness of breath Feb- 0 cristal Portillo. [address], [place], [place], [address], [place]. tel:[phone] Referring Provider: Cristy Shepherd, [address] [facility] [address], [place], [address]. tel:[phone] Office consultation , [facility], [address] [place], [place], [address], tel:[phone] [facility] PFO Closure (chief complaint) Palpitatio ns (chief complaint) Dyspnea (chief complaint) Shortness of breathFamily history of ischemic cardiac diseasePalpitatio nsAtrial septal defect Feb- 0 Memagali Morales. [address] [facility] [address], [place], [place], [address], [place]. tel:[phone] Referring Provider: Cristy Shepherd, [address] [facility] [address], [place], [address]. tel:[phone] Family History Family Member Type Diagnosis Age At Onset Problem (finding) Family history of HEART ATTACK Payers Payer name Insurance type Covered green party ID Authoriza tion(s) [facility] Claims [id number] Social History Type Description Quantity Date Captured [...] : EF 60%, trace MR TR and OR, IVC 1.3cm w/collapse. [facility] EVR Showed 20 days. Baseline rhythm SR, [...] : EF 60%, trace MR TR and OR, IVC 1.3cm w/collapse. [facility] EVR Showed 20 days. Baseline rhythm SR, [...] Patient comes as a new referral from [facility]. She has a history of PFO to wear done at [place] about 10 years ago. She had a [...] any lab work which was performed at [facility]. Instructions Date Instruction Additional Infor cori Verbal Education Medication Education Verbal Education Medication Education Assessments Type Assessment Date No Information
--- NOTE | 2024-12-27 13:00 | MM_ITS ---
PROCEDURE INFORMATION: Exam: MG Bilateral Screening 3D Mammography Exam date and time: 12/27/2024 12:57 PM Age: 44 years old Clinical indication: Screening examination. TECHNIQUE: Imaging protocol: Bilateral Screening tomosynthesis and 2D mammography including computer-aided detection (CAD) when performed. COMPARISON: MG MM DIG SCREENING MAMM BI W/CAD 12/04/2023 8:07 AM FINDINGS: MAMMOGRAPHY: Breast composition: There are scattered areas of fibroglandular density. Mass: None. Architectural distortion: None. Calcifications: No suspicious calcifications. Asymmetric density: None. Skin thickening: None. Axillary adenopathy: None. IMPRESSION: No mammographic evidence of malignancy. Annual screening is recommended unless otherwise clinically indicated. ASSESSMENT: BI-RADS Category 1: Negative.
--- NOTE | 2024-12-27 13:30 | US_ITS ---
FINAL REPORT TECHNIQUE: Ultrasound imaging of the thyroid was obtained. CLINICAL HISTORY: abnormal TSH FINDINGS: Thyroid lobes are normal in size. Parenchyma is minimally heterogeneous. There is a TR 4 nodule in the right lobe measuring up to 7 mm. 2 TR 4 left lobe nodules are seen which are somewhat ill-defined measuring up to 7 and 8 mm. IMPRESSION: Multiple, small nodules as above, favor benign based on size. No recommendation due to size and appearance. Reviewed, Interpreted and Dictated by Susan Gross MD Transcribed by Merissa Osman Authenticated and [facility]
== END 2024-12-27 23:59 | disposition home or self-care (01) ==
LOC: RAD 12:51
PROVIDERS: PCP Nurse Practitioner Family; Visit Provider Nurse Practitioner Family
DX: Z12.31 Encounter for screening mammogram for malignant neoplasm of breast (principal); Z00.00 Encounter for general adult medical examination without abnormal findings; E04.2 Nontoxic multinodular goiter; R92.323 Mammographic fibroglandular density, bilateral breasts; R63.5 Abnormal weight gain; R79.89 Other specified abnormal findings of blood chemistry; R53.83 Other fatigue; Z13.1 Encounter for screening for diabetes mellitus; Z11.59 Encounter for screening for other viral diseases; Z11.4 Encounter for screening for human immunodeficiency virus [HIV]; Z68.35 Body mass index [BMI] 35.0-35.9, adult
CPT/HCPCS: 76536; 77063; 77067

== ENCOUNTER 2025-01-12 08:25 | Outpatient (CLI) | payer OTHER, SELFPAY ==
--- OUTSIDE RECORDS SUMMARY | 2010-09-13 12:49 | XMS_ITS | Continuity of Care Document ---
Author Organization [facility] Address [address] [place] [address] Phone Care Team Providers Care Dock Boss Name Role Phone Maribell ARCEO, RAS, Sayra [...] [facility], [address], [place], [place], [address], [place] tel:[phone] [facility] No Information 1 Maribell ARCEO, RAS [place]. [address], [place], [address]. tel:[phone] OFFICE/OUTPAT IENT VISIT, EST [facility], [address], [place], [place], [address], [place] tel:[phone] [facility] Atrial Septal DefectShortne ss of Breath 0 Rishi ARCEO, RAS, [facility]. [address], [place], [address]. tel: [phone] OFFICE CONSULTATION [facility], [address], [place], [place], [address], tel:[phone] [facility] Patent Foramen OvaleTransien t Ischemic Attack 1-201 0 Rishi ARCEO, [facility], [facility]. [address], [place], [address]. tel: [phone] Family History Family Member Type Diagnosis Age At Onset No Information Payers Payer name Insurance type Covered constitution party ID Authoriza tion(s) No Information Social [...]
--- OUTSIDE RECORDS SUMMARY | 2020-05-16 10:45 | XMS_ITS | Continuity of Care Document ---
Author Organization [facility] Address [address] [address] [place] [address] Phone Care Team Providers Care Courtesy Clerk Name Role Phone Josh Allen, Maria Del Rosario, Andrew Unavailable Rosalva vailable Allergies, Adverse Reactions, Alerts Substance Reaction Status Criticality No Known Allergies Active No Inform ation Medications Medication Instructions Dosage Effective Dates (start - stop) Status Comments Toprol XL 25 mg tablet,extended release take by Oral route once as needed Not Available - Active Procedures Procedure Date Office/outpatient visit,est, mod 2019 TTE W/DOPPLER, COMPLETE Cardiovascular stress test ECG recording, recordingonly ECG recording, phys interpretation ECG recording, recordingonly ECG recording, phys interpretation Office consultation, high Electrocardiogram, complete (ECG) Advance Directives Directive Yes / No Effective Date File Name Resuscitation Not Answered N/A N/A Life Support Not Answered N/A N/A Intubation Not Answered N/A N/A Antibiotics Not Answered N/A N/A IV Fluid Support Not Answered N/A N/A Tube Feed Not Answered N/A N/A Other Directive No N/A N/A WARNING:The information contained in this section is historical and is provided for information only and does not constitute a legal document or any assurance that the information is still accurate. Please verify the information with the jj of the legal document before using it for clinical purposes. Encounters Encounter Description Practice Location Reason(s) For Visit Diagnoses Date Provider Providers Copied on Encounter Office/outpa tient visit,est, mod [facility], [address] [place], [place], [id number], [place] tel:[phone] [facility] Ett,EVR and Echo reviiew (chief complaint) Shortness of breathPalpitation sAtrial septal defect 0 Mewar Andrew. [address], [place], [place], [address], [place]. tel:[phone] Referring Provider: Cristy Shepherd, [facility], [place], [address]. tel:[phone] [facility], [address] [place], [place], [address], [place] tel:[phone] [facility] No Information 0 Romano Troy. [address], [place], [place], [address], [place]. tel:[phone] Referring Provider: Cristy Shepherd, [address], [place], [address]. tel:[phone] [facility], [address] [place], [place], [address], [place] tel:[phone] [facility] No Information 0 Mewar Andrew. [address], [place], [place], [address], [place]. tel:[phone] Referring Provider: Cristy Shepherd, [address] [facility] [address], [place], [address]. tel:[phone] [facility], [address] [place], [place], [address], [place] tel:[phone] [facility] PalpitationsShort ness of breath Feb- 0 cristal Portillo. [address], [place], [place], [address], [place]. tel:[phone] Referring Provider: Cristy Shepherd, [address] [facility] [address], [place], [address]. tel:[phone] Office consultation , [facility], [address] [place], [place], [id number], tel:[phone] [facility] PFO Closure (chief complaint) Palpitatio ns (chief complaint) Dyspnea (chief complaint) Shortness of breathFamily history of ischemic cardiac diseasePalpitatio nsAtrial septal defect Feb- 0 Memagali Morales. [address] [facility] [address], [place], [place], [address], [place]. tel:[phone] Referring Provider: Cristy Shepherd, [address], [place], [address]. tel:[phone] Family History Family Member Type Diagnosis Age At Onset Problem (finding) Family history of HEART ATTACK Payers Payer name Insurance type Covered democrat ID Authoriza tion(s) [facility] Claims [id number] Social History Type Description Quantity Date Captured Comments Alcohol Use Details Caffeine Use Details chocolate Tobacco Use Status Current non-smoker 20 Smoking Status Never smoker Sex Female Vital Signs Date / Time: Height Weight BMI Pulse Rate Blood Pressure Temperature Respiratory Rate Body Surface Area Head Circumference BMI percentile Pulse Ox Inhaled Ox 3:03 PM 60.00 in 166.00 lbs 32.4 2 kg/m eter (2) 80 /min 118/92 mm[Hg] Chief Complaint And Reason For Visit From encounter dated '05/16/2020 14:45'. Ett,EVR and Echo reviiew (chief complaint). Description: Sugey Garrido is 40 year old female with history of ASD, SOB , Palpitations and family history of CAD. Patient presents for review of Echo, EVR and ETT. Echo Showed : EF 60%, trace MR TR and WI, IVC 1.3cm w/collapse. [facility] EVR Showed 20 days. Baseline rhythm SR, min HR 53bpm shows bradycardia, max HR 143bpm shows tachycardia, avg HR 80bpm, no SVT or pauses. Marj Weeks MD. ETT showed Normal ETT: REBECCA: Baseline ekg: NSR Patient walked 1O:22 with a work load of 12.1 METS. Peak heart rate of 175bpm , 95% of max heart rate. . Normal Ett. Dr Luis Miguel Allen. Patient states she has chest pain lasting for a few seconds. She also states that she has occasional palpitations. We will give the patient Toprol 25mg as needed. We will see her backin 6 months.. History Of Present Illness Encounter Date Complaint History Of Prese nt Illness Ett,EVR and Echo reviiew Sugey nava is 40 year old female with history of ASD, SOB , Palpitations and family history of CAD. Patient presents for review of Echo, EVR and ETT. Echo Showed : EF 60%, trace MR TR and WI, IVC 1.3cm w/collapse. [facility] EVR Showed 20 days. Baseline rhythm SR, min HR 53bpm shows bradycardia, max HR 143bpm shows tachycardia, avg HR 80bpm, no SVT or pauses. Marj Weeks MD. ETT showed Normal ETT: REBECCA: Baseline ekg: NSR Patient walked 1O:22 with a work load of 12.1 METS. Peak heart rate of 175bpm , 95% of max heart rate. . Normal Ett. Dr Luis Miguel Allen. Patient states she has chest pain lasting for a few seconds. She also states that she has occasional palpitations. We will give the patient Toprol 25mg as needed. We will see her back in 6 months.. Palpitations The patient comp lains of palpitations. The patient describes the palpitations as a rapid heart beat. There are no significant aggravating factors. Nothing seems to make the palpitations better. The symptoms occur at rest. Dyspnea The patient visi ts the office to be evaluated for dyspnea (shortness of breath). The patient qualifies the shortness of breath as inability to get air in. There are no significant aggravating factors. There are no relieving factors. PFO Closure Patient comes as a new referral from [facility]. She has a history of PFO to wear done at [place] about 10 years ago. She had a Amplatz occluder device. Lately she has been complaining of palpitations off and on. This occurs 2-3 times per month and usually last for about 15 minutes. Palpitation is associated with shortness of breath. She also feels short of breath on moderate activity. She denies any chest pain. She does not have any history of hypertension, diabetes or dyslipidemia. She is not a smoker and drinks socially only. She is not an excessive caffeine drinker. There is no family history of premature coronary artery disease on clinical examination her blood pressure is well controlled lungs are clinically clear. Heart sounds are dual I could not hear any murmur. ECG shows normal sinus rhythm. Otherwise essentially normal ECG.My working diagnosis isHistory of PFO. Status post repair by Amplatz occluder device 10 years ago..Will get an echocardiogram done to evaluate the occluder deviceShortness of breath. Echocardiogram has been ordered to evaluate LV function as well as right sided function evaluate for any residual pulmonary hypertension. She is she has been complaining of shortness of breath on moderate activity we will also get plain exercise stress test evaluate effort tolerance and blood pressures pointsPalpitations. Clinically appears that she probably may be going into episodes of SVT. We will have her wear event recorder for a month. Meanwhile I have taught her how to perform carotid massage as well as Valsalva maneuvers. It does not appear that she is much of a caffeine drinker so continue with moderation in caffeine intake. See her back after testing is complete..She will bring any lab work which was performed at [facility]. Instructions Date Instruction Additional Infor cori Medication Education Verbal Education Medication Education Verbal Education Assessments Type Assessment Date No Information
--- OUTSIDE RECORDS SUMMARY | 2025-01-12 08:36 | XMS_ITS | Clinical Summary ---
[facility] Address [address] [place] [address] Care Team Providers Care Architectural Intern Name Role Phone Unavailable Primary Care Provider Unavailabl e Social History Tobacco Use Types Packs/Day Years Used Date Smoking Tobacco: Never Assessed Abuse Screen Answer Date Recorded Unsafe at Home or Work/School Not on file Feels Threatened by Someone? Not on file 08/2023 Does Anyone Keep You from Co ntacting Others or Doint Things Outside the Home? Not on file 07/18/2023 Physical Sign of Abuse Present Not on file 0 07/18/2023 Housing Stability Answer Date Recorded Current Living Arrangements Not on file 08/2023 Potentially Unsafe Housing Conditions Not on christi e 07/18/2023 Family and Community Support Answer Praker e Recorded Help with Day-to-Day Activities Not on file 07/18/2023 Lonely or Isolated Not on file 07/18/2023 Employment Answer Date Recorded Do you want help finding or keeping work or a ronald b? Not on file 07/18/2023 Disabilities Answer Date Recorded Concentrating, Remembering, or Making Decisions Difficulty Not on file 07/18/2023 Doing Errands Independently Difficulty Not on fi le 07/18/2023 Education Answer Date Recorded Help with school or training? Not on file Preferred Language Not on file 07/18/2023 Comments Unknown Sex and Gender Information Value Date Recorded Sex Assigned at Not on file Legal Sex Female 12:11 PM EDT Gender Identity Not on file Sexual Orientation Not on file Plan of Treatment Health Maintenance Due Date Last Done Comments ANNUAL PHYSICAL 1982 Annual Gynecologic Pelvic an d Breast Exam 1982 HEPATITIS C SCREENING 1982 TDAP/TD VACCINES (1 - Tdap) 2001 MAMMOGRAM 2022 COVID-19 Vaccine (2023-2 5 season) 2024 INFLUENZA VACCINE 03/15/2025 Pneumococcal Vaccine 0-49 Aged Out No longer eligible based on patient's age to complete this topic
--- NOTE | 2025-01-12 08:45 | CA_ITS ---
APPROVED REPORT EXAM: Comprehensive 2D, Doppler, and color-flow Echocardiogram Kiln Stacker: Haylee Cool RVT Ht: 5 ft 0 in Wt: 182lbs BSA: 1.79 BP: 121/84 mmHg Indications: PRE-OP,ABNORMAL EKG,PRIOR PFO CLOSURE 14 YEARS AGO 2D Dimensions LA Volume 29.90 mL LA Volume Index 16.70 mL/m2 (M/F) 16-34 M-Mode Dimensions RVDd 2.72 cm (0.9-2.6) LA Diam 3.46 cm (1.9-4.0) LVDd 4.69 cm (3.5-5.7) LVDs 3.05 cm (3.5-5.7) IVSd 0.84 cm (0.6-1.1) PWd 0.70 cm (0.6-1.1) EF (Teich) 64.30% FS 35.00% EDV (Teich) 101.90 mL TAPSE 2.10 (<1.7) ESV (Teich) 36.40 mL LV Diastology E Decel Time 230 (160-240 msec) E/A Ratio 1.5 Aortic Valve LOGAN Index 1.76 cm2/m2 AoV Peak Darvin. 97.0 (50-130 cm/s) AO Peak GR. 3.80 mmHg AO Mean GR. 1.90 (<5 mmHg) AO VTI 17.1 (18-25 cm) LOGAN (VTI) 3.24 (2.5-4.5 cm2) Mitral Valve MV E Max Darvin. 85.0 (40-130 cm/s) MV A Velocity 57.0 (40-130 cm/s) E/A Ratio 1.51 MV PHT 67.0 ms Pulmonary Valve PV Peak Velocity 89.0 (50-150 cm/s) Left Ventricle The left ventricle is normal size. Left ventricular systolic function is normal. The left ventricular ejection fraction is within the normal range. There is normal left ventricular wall thickness. There is normal LV segmental wall motion. The left ventricular diastolic function is normal. LVEF is 55% Right Ventricle The right ventricle is normal size. The right ventricular systolic function is normal. Atria The left atrium size is normal. The right atrium size is normal. PFO closure device is present. The device is well-seated. There is no color Doppler evidence of residual interatrial shunt. Aortic Valve The aortic valve opens well. There is no hemodynamically significant aortic valvular stenosis. No aortic regurgitation is present. Mitral Valve The mitral valve is normal in structure. No evidence of mitral valve stenosis. Trace mitral regurgitation is present. Tricuspid Valve The tricuspid valve leaflets are thin and pliable. Trace tricuspid regurgitation. There is insufficient TR jet to estimate RVSP. Pulmonic Valve The pulmonary valve is grossly normal in structure. Trace pulmonic valve regurgitation is present. Great Vessels The aortic root is normal in size. IVC is normal in size and collapses >50% with inspiration. Pericardium There is no pericardial effusion. Other Information Study Quality: Fair Conclusion Normal biventricular systolic function. No significant valvular stenosis or regurgitation. PFO closure device is present. The device is well-seated. There is no color Doppler evidence of residual interatrial shunt. Electronically signed by : Lindy Nelson MD 01/12/2025 11:57:26
== END 2025-01-12 23:59 | disposition home or self-care (01) ==
LOC: RT 08:26
PROVIDERS: PCP Nurse Practitioner Family; Visit Provider Nurse Practitioner
DX: Z01.810 Encounter for preprocedural cardiovascular examination (principal); R94.31 Abnormal electrocardiogram [ECG] [EKG]; R79.89 Other specified abnormal findings of blood chemistry; R53.83 Other fatigue; Z95.818 Presence of other cardiac implants and grafts; Z87.74 Personal history of (corrected) congenital malformations of heart and circulatory system
CPT/HCPCS: 93306

== ENCOUNTER 2025-01-16 10:18 | Outpatient (CLI) | payer OTHER, SELFPAY ==
[2025-01-16 15:32] LABS: Hemoglobin A1C 4.8 % (4.0-6.0)
[2025-01-16 15:38] LABS: Cholesterol 181 mg/dl (140-200); HDL Cholesterol 35 mg/dl (40-60); Iron 64 ug/dL (37-170); Triglycerides 83 mg/dl (30-150)
[2025-01-16 15:48] LABS: Total Iron Binding Capacity 350 ug/dL (265-497)
[2025-01-16 15:56] LABS: Free T4 (Free Thyroxine) 0.86 ng/dl (0.78-2.19)
[2025-01-16 16:06] LABS: Thyroid Stimulating Hormone 1.68 uIU/mL (0.465-4.68)
[2025-01-16 16:14] LABS: Ferritin 19.9 ng/ml (6.24-137)
[2025-01-16 16:25] LABS: Vitamin B12 354 pg/mL (239-931)
--- OUTSIDE RECORDS SUMMARY | 2025-01-17 12:49 | XMS_ITS | Clinical Summary ---
[facility] Address [address] [place] [address] Care Team Providers Care Solar Photovoltaic Systems Engineer Name Role Phone Unavailable Primary Care Provider [...] e 07/18/2023 Family and Community Support Answer Parker e Recorded Help with Day-to-Day Activities Not [...]
== END 2025-01-16 23:59 | disposition home or self-care (01) ==
LOC: LAB.DROPOF 01-17 12:47
PROVIDERS: PCP Nurse Practitioner Family; Visit Provider Nurse Practitioner Family
DX: E11.65 Type 2 diabetes mellitus with hyperglycemia (principal); R79.89 Other specified abnormal findings of blood chemistry; E61.1 Iron deficiency; E53.8 Deficiency of other specified B group vitamins; G47.33 Obstructive sleep apnea (adult) (pediatric); I10 Essential (primary) hypertension
CPT/HCPCS: 80061; 82607; 82728; 83036; 83540; 83550; 84439; 84443

== ENCOUNTER 2025-01-26 10:10 | Day surgery (SDC) | payer OTHER, SELFPAY ==
[2025-01-24 14:37] VITALS: BMI 34.2
[2025-01-26 10:58] VITALS: BP 99/69; PULSE 76; RESP 14; TEMP 36.4; O2SAT 100; BMI 75.3
[2025-01-26 11:02] LABS: Urine Pregnancy, HCG Qual. Negative (Negative)
--- NOTE | 2025-01-26 11:14 | P.PNANES_ITS ---
[facility] Disclaimer: The information contained in this section may have been updated after the patient was seen, as this information can be updated by other users. Medical History BMI 35.0-35.9,adult History of enlarged tonsils Sinusitis Bronchitis Acute streptococcal pharyngitis Right cornea abrasion Acute bacterial pharyngitis Need for Tdap vaccination BMI 32.0-32.9,adult Surgical History History of surgical closure of patent foramen ovale (PFO) S/P T&A (status post tonsillectomy and adenoidectomy) Status post percutaneous patent foramen ovale closure Family History Father Hypertension Diabetes Grandfather Cancer colon cancer Social History (Updated 01/26/25 @ 10:59 by Frida Doss RN) Smoking Status: Never smoker alcohol intake: current alcohol intake frequency: holidays/special occasions only substance use type: denies use current occupational status: employed Travel in the last 8 weeks?: None Have you lived/traveled outside US in past 30 days?: No Contact w/someone who lives/traveled outside US past 30 days?: No Exposure to someone with infectious disease in past 14 days?: No Do you have a fever (greater than 100.4 F or 38 C)?: No Have you tested positive for COVID-19?: No Exposed to someone with COVID-19 in past 14 days?: No Do you have a sore throat?: No Do you have a cough?: No Do you have any weakness?: No Are you experiencing any nausea/vomitting?: No Do you have any diarrhea?: No Are you experiencing any unusual bleeding?: No Do you have any muscle aches/pain?: No Do you have any abdominal pain?: No Are you experiencing loss of taste or smell?: No [facility] Anesthesia Checklist Patient Identification Patient Identification: Arm Band and Verbal (Name & ) Structural Data Admitted From: Home Planned Operative Procedure/s: colonoscopy Consent for Planned Operative Procedure(s) Verified: Yes Verified Documents: Surgical Consent NPO Status Verified Time NPO: 00:00 Additional verifications Anesthesia Reactions: No Hx Blood Transfusions: No Blood Transfusion Reaction: No Airway Assessment Mallampati Score:: Class I C-Spine Mobility Assessed: Yes TMJ Mobility Assessed: Yes Dentition: Good Dentition Neurological Assessment Level of Consciousness: Awake, Alert and Appropriate Hx Seizures: No Numbness or tingling in extremities: No Anesthesia Plan Anesthesia Risk discussed: Yes Anesthesia Plan: Verified ASA Class: II Anesthesia Type: MAC
--- NOTE | 2025-01-26 11:32 | EXP.HP ---
History of Present Illness *Admission Date: 01/26/25 *History of present illness: Mrs. Garrido is a 44-year-old female who is here for screening colonoscopy. The patient does state that her paternal grandfather had colon cancer in his 60s. Her mother, father and sister have had colon polyps. The examination is deemed medically necessary for screening colonoscopy. The patient has been seen, interviewed and examined prior to the procedure by both myself and the anesthesia provider. [facility] Disclaimer: The information contained in this section may have been updated after the patient was seen, as this information can be updated by other users. Medical History (Updated 01/26/25 @ 11:40 by Sebas Cespedes II, MD) BMI 35.0-35.9,adult History of enlarged tonsils Sinusitis Bronchitis Acute streptococcal pharyngitis Right cornea abrasion Acute bacterial pharyngitis Need for Tdap vaccination BMI 32.0-32.9,adult Surgical History History of surgical closure of patent foramen ovale (PFO) S/P T&A (status post tonsillectomy and adenoidectomy) Status post percutaneous patent foramen ovale closure Family History Father Hypertension Diabetes Grandfather Cancer colon cancer Social History (Updated 01/26/25 @ 10:59 by Frida Doss RN) Smoking Status: Never smoker alcohol intake: current alcohol intake frequency: holidays/special occasions only substance use type: denies use current occupational status: employed Travel in the last 8 weeks?: None Have you lived/traveled outside [place] in past 30 days?: No Contact w/someone who lives/traveled outside [place] past 30 days?: No Exposure to someone with infectious disease in past 14 days?: No Do you have a fever (greater than 100.4 F or 38 C)?: No Have you tested positive for COVID-19?: No Exposed to someone with COVID-19 in past 14 days?: No Do you have a sore throat?: No Do you have a cough?: No Do you have any weakness?: No Are you experiencing any nausea/vomitting?: No Do you have any diarrhea?: No Are you experiencing any unusual bleeding?: No Do you have any muscle aches/pain?: No Do you have any abdominal pain?: No Are you experiencing loss of taste or smell?: No Other Medical History Have you received the Pneumonia Vaccine: No Review of Systems Review of Systems Review of systems (narrative): Negative *Cardiovascular Comments: Negative *Gastrointestinal Comments: Negative *Genitourinary Comments: Negative *Musculoskeletal Comments: Negative *Neurologic Comments: Negative Meds Home Medications and Allergies Home Medications ?Medication ?Instructions ?Recorded ?Confirmed ?Type ascorbic acid (vitamin C) 500 mg 500 mg PO DAILY #90 tabs 12/13/24 01/26/25 Rx tablet ferrous sulfate 325 mg (65 mg 325 mg PO DAILY #90 tabs 12/13/24 01/26/25 Rx iron) tablet (FeroSul) ondansetron 4 mg disintegrating 4 mg PO Q8H PRN nausea and 12/15/24 01/26/25 Rx tablet vomiting #30 tabs semaglutide (weight loss) 0.5 0.5 mg (0.5 mL) SQ WEEKLY #2 mL 01/13/25 01/26/25 Rx mg/0.5 mL subcutaneous pen injector (Wegovy) [id number] 140 gram-sod sulfate 9 500 ml PO .COMPLEX colonscopy #3 ea 01/16/25 01/26/25 Rx gram-NaCl 5.2gram-KCl-C oral pwdr packs (Plenvu) [id number] oral elixir 1 ea PO DAILY 01/18/25 01/26/25 History New Prescriptions to Start Prescriptions: Allergies Allergy/AdvReac Type Severity Reaction Status Date / Time No Known Allergies Allergy Verified 01/26/25 11:07 Exam Data for Last 24 hours Vital signs and Labs for Last 24 Hours: Temp Pulse Resp BP Pulse Ox O2 Del Method 97.6 F 76 14 99/69 L 100 Room Air 01/26/25 10:58 01/26/25 10:58 01/26/25 10:58 01/26/25 10:58 01/26/25 10:58 01/26/25 10:58 Laboratory Results - last 24 hr 01/26/25 10:51: Urine HCG, Qual Negative I & O for Last 24 hours: Intake & Output 01/23/25 01/24/25 01/25/25 01/26/25 23:59 23:59 23:59 23:59 Weight 175 lb 385 lb 12.943 oz *Routine HEENT Exam Head: Present normocephalic Eye: Present EOMI and PERRL ENT: Present mucous membranes moist *Routine Neck Exam Neck: Present supple *Routine Respiratory Exam Respiratory: Present CTA bilaterally *Routine Cardiovascular Exam Cardiovascular: Present RRR *Routine Abdominal Exam Abdominal: Present soft and normoactive bowel sounds; Absent tenderness *Routine Rectal Exam Rectal:: deferred *Routine Genitalia Exam Genitalia:: deferred *Routine Extremities Exam Extremities: Absent cyanosis, clubbing or edema *Routine Skin Exam Skin: Present warm; Absent rash *Routine Neurological Exam Neurological: Present alert and oriented X3 Assessment and Plan *Assessment and plan (1) Family history of colon cancer: Status: Acute Category: Medical Code(s): Z80.0 - Family history of malignant neoplasm of digestive organs (2) Family history of colon polyps, unspecified: Status: Acute Category: Medical Code(s): Z83.719 - Family history of colon polyps, unspecified (3) Screening for colon cancer: Status: Acute Category: Medical Code(s): Z12.11 - Encounter for screening for malignant neoplasm of colon Plan A/P: 1. Screening/strong family history of colon cancer and family history of colon polyps is the preprocedural diagnosis. The patient will be anesthetized/sedated using MAC sedation. The patient has been seen and examined. Cardiac and lung assessment prior to the examination is stable. Proceed with planned screening colonoscopy.
--- NOTE | 2025-01-26 11:41 | P.PCN_ITS ---
[facility] Procedure Note Date: 01/26/25 Time: 12:03 Procedure Note:: Colonoscopy Procedure Report: Colonoscopy with cold snare polypectomy Endoscopist: Sebas Cespedes II, MD Referring physician: JAMIE Khan Date of Procedure: January 26, 2025 Equipment: Olympus [id number] adult colonoscope Sedation: MAC sedation Indication: Mrs. Garrido is a 44-year-old female who is here for initial screening colonoscopy. She does state that her paternal grandfather had colon cancer in his 60s. Her mother, father and sister had colon polyps. She reports no abdominal pain, weight loss, change in her bowel habits or rectal bleeding. This is her first colonoscopy. Procedure: Prior to the procedure, a history and physical exam was performed, and patient's medications and allergies were reviewed. The risks, benefits and alternatives of the sedation and procedure were discussed with the patient. All questions were answered and informed consent was obtained. The patient was brought to the procedure room. Patient identification and proposed procedure were verified by the physician and the nurse. The patient was placed in a left lateral decubitus position and the scope was passed under direct vision. Throughout the procedure, the patient's blood pressure, pulse, and oxygen saturations were monitored continuously. The colonoscopy was accomplished without difficulty. The patient tolerated the procedure well. Findings: On digital rectal examination there was normal rectal tone. There were no external hemorrhoids. The colonoscope was introduced through the anal canal to the rectum and advanced to the cecum. The ileocecal valve and appendiceal orifice were identified. The scope was advanced a short distance into the ileum which appeared grossly normal. The scope was then withdrawn into the colon. The cecum and ascending colon were normal. There were 5 sessile polyps in the transverse colon (5, 5, 5, 6 and 7 mm). These were all removed via cold snare polypectomy. These did have a mucous cap and suspect that these are serrated adenomas. The remainder of the descending, sigmoid and rectum are normal. Upon retroflexion within the rectum there were 1-2 internal hemorrhoids. The preparation was excellent throughout with Haddock Preparation Score of 9. The cecal time was 14 minutes. Impression: 1. Colonic polyps (transverse colon) x 5 Plan: I will follow-up the polyp histology and recommend repeat surveillance colonoscopy again in 3 to 5 years.
[2025-01-26 12:06] VITALS: BP 105/65; PULSE 85; RESP 16; O2SAT 97
[2025-01-26 12:16] VITALS: BP 96/51; PULSE 76; RESP 16; O2SAT 97
[2025-01-26 12:26] VITALS: BP 112/61; PULSE 77; RESP 16; TEMP 36.4; O2SAT 96
[2025-01-26 12:31] VITALS: BP 122/68; PULSE 76; RESP 16; O2SAT 98
== END 2025-01-26 12:33 | disposition home or self-care (01) ==
PROVIDERS: PCP Nurse Practitioner Family; Visit Provider Internal Medicine Gastroenterology
PROC: 0DJD8ZZ Inspection of Lower Intestinal Tract, Via Natural or Artificial Opening Endoscopic (ICD-10-PCS; CPT 45378; principal; 2025-01-26 12:00)
DX: Z12.11 Encounter for screening for malignant neoplasm of colon (principal); D12.3 Benign neoplasm of transverse colon; Z83.719 Family history of colon polyps, unspecified; Z80.0 Family history of malignant neoplasm of digestive organs
CPT/HCPCS: 45385; 81025; J2003; J2704